=== PATIENT | male | born 1950 | race Caucasian/White ===

== ENCOUNTER 2020-09-13 13:57 | Emergency (ER) | payer OTHER, MEDICARE ==
[2020-09-13] MEDS ORDERED: fentaNYL 100 MCG/2 ML SDV IM ONE (14:25)
[2020-09-13] MEDS ORDERED: Sodium Chloride 0.9% 10 ML Syringe FLUSH PRN (14:25)
--- NOTE | 2020-09-13 14:29 | EDM.PDOC ---
ED HPI GENERAL MEDICAL PROBLEM - General Chief Complaint: Abdominal Pain Stated Complaint: ABD PAIN Time Seen by Provider: 09/13/20 14:22 Source of Information: Reports: Patient, RN Notes Reviewed History Limitations: Reports: No Limitations - History of Present Illness INITIAL COMMENTS - FREE TEXT/NARRATIVE: 70-year-old gentleman presents emergency department day with complaint of right flank right upper quadrant pain, he is a difficult historian he states the pain is been ongoing for some time it does come and go he does have significant bruising in this area he is unsure of how that happened. He does admit to incredible thirst and frequent urination - Related Data Allergies Allergy/AdvReac Type Severity Reaction Status Date / Time No Known Allergies Allergy Verified 09/13/20 14:09 Home Meds: Home Meds Aspirin [Halfprin] 1 tab PO DAILY 09/13/20 [History] Finasteride 1 tab PO DAILY 09/13/20 [History] Venlafaxine HCl [Venlafaxine HCl ER] 300 mg PO QAM 09/13/20 [History] lisinopriL [Lisinopril] 40 mg PO DAILY 09/13/20 [History] Past Medical History Cardiovascular History: Reports: Hypertension Other Musculoskeletal History: left finger amputation Oncologic (Cancer) History: Reports: Prostate - Infectious Disease History Infectious Disease History: Reports: Chicken Pox, Mumps - Past Surgical History Musculoskeletal Surgical History: Reports: Amputation Social & Family History - Tobacco Use Tobacco Use Status *Q: Never Tobacco User - Caffeine Use Caffeine Use: Reports: Coffee - Recreational Drug Use Recreational Drug Use: No ED ROS GENERAL - Review of Systems Review Of Systems: See Below Constitutional: Reports: No Symptoms HEENT: Reports: No Symptoms Respiratory: Reports: No Symptoms Cardiovascular: Reports: No Symptoms GI/Abdominal: Reports: Abdominal Pain. Denies: Nausea, Vomiting : Reports: Frequency Skin: Reports: Bruising ED EXAM, GI/ABD - Physical Exam Exam: See Below Exam Limited By: No Limitations General Appearance: Alert, Mild Distress Respiratory/Chest: No Respiratory Distress, Lungs Clear, Normal Breath Sounds, No Accessory Muscle Use, Chest Non-Tender Cardiovascular: Regular Rate, Rhythm, No Murmur GI/Abdominal Exam: Soft, Tender (ruq) Course - Vital Signs Last Recorded V/S: Last Vital Signs Temp 98.6 F 09/13/20 14:19 Pulse 70 09/13/20 16:34 Resp 18 09/13/20 15:26 BP 142/76 H 09/13/20 16:34 Pulse Ox 98 09/13/20 16:34 - Orders/Labs/Meds Orders: Active Orders 24 hr Category Date Time Status Peripheral IV Care [RC] . DIRECTED Care 09/13/20 14:26 Active Iopamidol [Isovue-300 (61%)] Med 09/13/20 15:30 Active 136 ml IV . DIRECTED Ketorolac [Toradol] Med 09/13/20 16:46 Once 30 mg IVPUSH ONETIME ONE Sodium Chloride 0.9% [Normal Saline] 1,000 ml Med 09/13/20 14:30 Active IV ASDIRECTED Sodium Chloride 0.9% [Normal Saline] 81 ml Med 09/13/20 15:30 Active IV ASDIRECTED Sodium Chloride 0.9% [Saline Flush] Med 09/13/20 14:25 Active 10 ml FLUSH ASDIRECTED PRN Peripheral IV Insertion Adult [OM.PC] Urgent Oth 09/13/20 14:25 Ordered Medication Orders Sodium Chloride (Normal Saline) 1,000 mls @ 500 mls/hr IV ASDIRECTED TRISTON Last Admin: 09/13/20 14:41 Dose: 500 mls/hr Documented by: BAY Sodium Chloride (Normal Saline) 81 mls @ 3 mls/sec IV ASDIRECTED TRISTON Iopamidol (Iopamidol 612 Mg/Ml 150 Ml Bottle) 136 ml IV . DIRECTED TRISTON Sodium Chloride (Sodium Chloride 0.9% 10 Ml Syringe) 10 ml FLUSH ASDIRECTED PRN PRN Reason: Keep Vein Open Last Admin: 09/13/20 14:41 Dose: 10 ml Documented by: BAY Labs: Laboratory Tests 09/13/20 09/13/20 09/13/20 Range/Units 14:27 14:35 14:35 WBC 7.1 (4.5-11.0) K/uL RBC 4.67 (4.30-5.90) M/uL Hgb 14.2 (12.0-15.0) g/dL Hct 42.7 (40.0-54.0) % MCV 91 (80-98) fL MCH 30 (27-31) pg MCHC 33 (32-36) % Plt Count 311 (150-400) K/uL Neut % (Auto) 62 (36-66) % Lymph % (Auto) 26 (24-44) % Ashley % (Auto) 11 H (2-6) % Eos % (Auto) 1 L (2-4) % Baso % (Auto) 1 (0-1) % Sodium 142 (140-148) mmol/L Potassium 3.9 (3.6-5.2) mmol/L Chloride 103 (100-108) mmol/L Carbon Dioxide 28 (21-32) mmol/L Anion Gap 11.0 (5.0-14.0) mmol/L BUN 19 H (7-18) mg/dL Creatinine 1.0 (0.8-1.3) mg/dL Est Cr Clr Drug Dosing 65.18 mL/min Estimated GFR (MDRD) > 60 (>60) Glucose 103 (74-106) mg/dL Lactic Acid (0.4-2.0) mmol/L Calcium 10.0 (8.5-10.1) mg/dL Total Bilirubin 0.3 (0.2-1.0) mg/dL AST 22 (15-37) U/L ALT 42 (12-78) U/L Alkaline Phosphatase 64 (46-116) U/L Troponin I 0.056 (0.000-0.056) ng/mL Total Protein 7.6 (6.4-8.2) g/dL Albumin 3.8 (3.4-5.0) g/dL Globulin 3.8 H (2.3-3.5) g/dL Albumin/Globulin Ratio 1.0 L (1.2-2.2) Lipase 136 (73-393) U/L Urine Color Yellow (YELLOW) Urine Appearance Clear (CLEAR) Urine pH 7.0 (5.0-8.0) Ur Specific Mclean 1.015 (1.008-1.030) Urine Protein Negative (NEGATIVE) mg/dL Urine Glucose (UA) Negative (NEGATIVE) mg/dL Urine Ketones Negative (NEGATIVE) mg/dL Urine Occult Blood Trace-lysed H (NEGATIVE) Urine Nitrite Negative (NEGATIVE) Urine Bilirubin Negative (NEGATIVE) Urine Urobilinogen 0.2 (0.2-1.0) EU/dL Ur Leukocyte Esterase Negative (NEGATIVE) Urine RBC 5-10 H (0-5) Urine WBC Not seen (0-5) Ur Epithelial Cells Rare Amorphous Sediment Not seen Urine Bacteria Not seen Urine Mucus Not seen 09/13/20 Range/Units 14:35 WBC (4.5-11.0) K/uL RBC (4.30-5.90) M/uL Hgb (12.0-15.0) g/dL Hct (40.0-54.0) % MCV (80-98) fL MCH (27-31) pg MCHC (32-36) % Plt Count (150-400) K/uL Neut % (Auto) (36-66) % Lymph % (Auto) (24-44) % Ashley % (Auto) (2-6) % Eos % (Auto) (2-4) % Baso % (Auto) (0-1) % Sodium (140-148) mmol/L Potassium (3.6-5.2) mmol/L Chloride (100-108) mmol/L Carbon Dioxide (21-32) mmol/L Anion Gap (5.0-14.0) mmol/L BUN (7-18) mg/dL Creatinine (0.8-1.3) mg/dL Est Cr Clr Drug Dosing mL/min Estimated GFR (MDRD) (>60) Glucose (74-106) mg/dL Lactic Acid 1.0 (0.4-2.0) mmol/L Calcium (8.5-10.1) mg/dL Total Bilirubin (0.2-1.0) mg/dL AST (15-37) U/L ALT (12-78) U/L Alkaline Phosphatase (46-116) U/L Troponin I (0.000-0.056) ng/mL Total Protein (6.4-8.2) g/dL Albumin (3.4-5.0) g/dL Globulin (2.3-3.5) g/dL Albumin/Globulin Ratio (1.2-2.2) Lipase (73-393) U/L Urine Color (YELLOW) Urine Appearance (CLEAR) Urine pH (5.0-8.0) Ur Specific Mclean (1.008-1.030) Urine Protein (NEGATIVE) mg/dL Urine Glucose (UA) (NEGATIVE) mg/dL Urine Ketones (NEGATIVE) mg/dL Urine Occult Blood (NEGATIVE) Urine Nitrite (NEGATIVE) Urine Bilirubin (NEGATIVE) Urine Urobilinogen (0.2-1.0) EU/dL Ur Leukocyte Esterase (NEGATIVE) Urine RBC (0-5) Urine WBC (0-5) Ur Epithelial Cells Amorphous Sediment Urine Bacteria Urine Mucus Meds: Medications Generic Name Dose Route Start Last Admin Trade Name Freq PRN Reason Stop Dose Admin Sodium Chloride 1,000 mls @ 500 mls/hr 09/13/20 14:30 09/13/20 14:41 Normal Saline IV 500 mls/hr ASDIRECTED TRISTON Administration Sodium Chloride 81 mls @ 3 mls/sec 09/13/20 15:30 Normal Saline IV ASDIRECTED TRISTON Iopamidol 136 ml 09/13/20 15:30 Iopamidol 612 Mg/Ml 150 Ml Bottle IV . DIRECTED TRISTON Sodium Chloride 10 ml 09/13/20 14:25 09/13/20 14:41 Sodium Chloride 0.9% 10 Ml Syringe FLUSH 10 ml ASDIRECTED PRN Administration Keep Vein Open Discontinued Medications Generic Name Dose Route Start Last Admin Trade Name Freq PRN Reason Stop Dose Admin Fentanyl 50 mcg 09/13/20 14:25 09/13/20 14:40 Fentanyl 100 Mcg/2 Ml Sdv IM 09/13/20 14:26 50 mcg ONETIME ONE Administration Sodium Chloride 10 ml 09/13/20 15:21 Sodium Chloride 0.9% 10 Ml Syringe FLUSH 09/13/20 15:22 ONETIME ONE Departure - Departure Time of Disposition: 16:48 Disposition: Home, Self-Care 01 Condition: Fair Clinical Impression: Functional constipation - Discharge Information Instructions: Constipation, Adult Referrals: PCP,None [Primary Care Provider] - Forms: ED Department Discharge Additional Instructions: Try the colonoscopy prep at home, please followup with your primary care provider in 3-5 days if not better, please call return to the emergency department with worsening of symptoms. Sepsis Event Note (ED) - Evaluation Sepsis Screening Result: No Definite Risk - Focused Exam Vital Signs: Vital Signs Temp Pulse Resp BP Pulse Ox 09/13/20 16:34 70 142/76 H 98 09/13/20 15:26 78 18 169/68 H 98 09/13/20 14:44 74 18 151/85 H 97 09/13/20 14:19 98.6 F 76 18 189/82 H 96 09/13/20 14:12 98.6 F 76 18 189/82 H 96 - My Orders Last 24 Hours: My Active Orders 09/13/20 14:25 Sodium Chloride 0.9% [Saline Flush] 10 ml FLUSH ASDIRECTED PRN Peripheral IV Insertion Adult [OM.PC] Urgent 09/13/20 14:26 Peripheral IV Care [RC] . DIRECTED 09/13/20 14:30 Sodium Chloride 0.9% [Normal Saline] 1,000 ml IV ASDIRECTED 09/13/20 15:30 Iopamidol [Isovue-300 (61%)] 136 ml IV . DIRECTED Sodium Chloride 0.9% [Normal Saline] 81 ml IV ASDIRECTED 09/13/20 16:46 Ketorolac [Toradol] 30 mg IVPUSH ONETIME ONE - Assessment/Plan Last 24 Hours: My Active Orders 09/13/20 14:25 Sodium Chloride 0.9% [Saline Flush] 10 ml FLUSH ASDIRECTED PRN Peripheral IV Insertion Adult [OM.PC] Urgent 09/13/20 14:26 Peripheral IV Care [RC] . DIRECTED 09/13/20 14:30 Sodium Chloride 0.9% [Normal Saline] 1,000 ml IV ASDIRECTED 09/13/20 15:30 Iopamidol [Isovue-300 (61%)] 136 ml IV . DIRECTED Sodium Chloride 0.9% [Normal Saline] 81 ml IV ASDIRECTED 09/13/20 16:46 Ketorolac [Toradol] 30 mg IVPUSH ONETIME ONE Plan: Assessment Acuity = acute Site and laterality = functional constipation Etiology = slow transit time Manifestations = abdominal pain Location of injury = Home Lab values = CBC CMP unremarkable troponin is 0.056 which is in the normal range of uncertain significance CT scan describes no acute process however there is a large amount of stool on the right side of the colon Plan I did review lab CT scan results with him he is can try MiraLAX colonoscopy prep at home follow-up primary care 3 to 5 days if not better This note was dictated using [employer] voice recognition software please call with any questions on syntax or grammar.
[2020-09-13] MEDS ORDERED: Sodium Chloride 0.9% 1,000 ML IV SCH (14:30)
[2020-09-13] MEDS ORDERED: Sodium Chloride 0.9% 10 ML Syringe FLUSH ONE (15:21)
[2020-09-13] MEDS ORDERED: Iopamidol 612 MG/ML 150 ML Bottle IV SCH (15:30)
--- NOTE | 2020-09-13 16:37 | CRLCT ---
INDICATION: Right upper quadrant pain for 10 days with bruising, no history of fall or trauma, history of prostate cancer TECHNIQUE: CT abdomen and pelvis acquired with 136 cc Isovue-300 IV contrast. COMPARISON: None FINDINGS: Lower chest: Unremarkable. No rib fracture. Liver: Hepatic steatosis. Spleen: Unremarkable. Pancreas: Unremarkable. Gallbladder and bile ducts: Unremarkable. Adrenal glands: Unremarkable. Kidneys: Unremarkable. GI tract: Unremarkable. Appendix is normal. Vascular structures: Unremarkable. Lymph nodes: Unremarkable. Miscellaneous: No soft tissue hematoma in the right thoracoabdominal wall. No free air or significant free fluid. Pelvic Organs: Prostatic calcification and either surgical clips or radiotherapy beads within the prostate. Bones: Severe degenerative disc disease at L4-L5, otherwise unremarkable for age. No suspicious osseous lesion. IMPRESSION: No etiology to explain right upper quadrant pain or bruising. No acute intra-abdominal process identified. Hepatic steatosis. Please note that all CT scans at this facility use dose modulation, iterative reconstruction, and/or weight-based dosing when appropriate to reduce radiation dose to as low as reasonably achievable. Dictated by Connie Cunningham MD @ Sep 13 2020 4:29PM Signed by Dr. Connie Cunningham @ Sep 13 2020 4:36PM
[2020-09-13] MEDS ORDERED: Ketorolac 30 MG/ML SDV IVPUSH ONE (16:46)
== END 2020-09-13 17:07 | disposition home or self-care (01) ==
LOC: JP.ED 13:57
DX: K59.04 Chronic idiopathic constipation (principal); I10 Essential (primary) hypertension; Z79.82 Long term (current) use of aspirin; Z79.899 Other long term (current) drug therapy
CPT/HCPCS: 36415; 74177; 80053; 81001; 83605; 83690; 84484; 85025; 96372; 99283; 99284; J3010; J7030

== ENCOUNTER 2023-02-15 20:08 | Emergency (ER) | payer MEDICARE, OTHER ==
[2023-02-15] MEDS ORDERED: Proparacaine 0.5% Ophth Soln 15 ML Bottle EYEBOTH ONE (20:16)
[2023-02-15] MEDS ORDERED: Erythromycin Base 0.5% Ophth Oint 1 GM Tube EYELF ONE (21:54)
[2023-02-15] MEDS ORDERED: Fluorescein 1 MG Ophth Strip EYEBOTH ONE (21:54)
== END 2023-02-15 22:05 | disposition home or self-care (01) ==
LOC: JP.ED 20:08
DX: S05.02XA Injury of conjunctiva and corneal abrasion without foreign body, left eye, initial encounter (principal); H11.32 Conjunctival hemorrhage, left eye; I10 Essential (primary) hypertension; Z79.899 Other long term (current) drug therapy
CPT/HCPCS: 99283; A9270